=== PATIENT | male | born 1985 | race Caucasian/White ===

== ENCOUNTER 2018-05-12 13:51 | Emergency (ER) | payer MEDICAID, OTHER ==
[~2018-05-12] VITALS: Ht 175.3 cm; Wt 88.5 kg
--- NOTE | 2018-05-12 14:42 | NUR ---
T.PT IS IN ROOM #1A. DR KAMARA EVALUATED THE PT.
--- NOTE | 2018-05-12 15:26 | NUR ---
PT WAS D/C'D TO HOME. D/C INSTRUCTIONS GIVEN TO THE PT.
[2018-05-12 15:27] VITALS: BP 128/78
== END 2018-05-12 15:28 | disposition home or self-care (01) ==
LOC: ER 13:51
DX: S01.01XA Laceration without foreign body of scalp, initial encounter (principal); W26.8XXA Contact with other sharp object(s), not elsewhere classified, initial encounter; Y93.89 Activity, other specified; Y92.89 Other specified places as the place of occurrence of the external cause; Y99.8 Other external cause status
CPT/HCPCS: 12001; A4663